=== PATIENT | female | born 1970 | race Caucasian/White ===

== ENCOUNTER 2018-10-30 18:52 | Inpatient (IN) | payer MEDICAID ==
[~2018-10-30] VITALS: Ht 170.2 cm; Wt 47.6 kg
[2018-10-30] MEDS ORDERED: ONDANSETRON HCL 4MG/2ML INJ IV STA (20:14)
[2018-10-30] MEDS ORDERED: SODIUM CHLORIDE 0.9% 1,000 ML IV ONE (20:14)
[2018-10-30] MEDS ORDERED: KETOROLAC 15MG/ML VIAL IV ONE ×2 (20:15→23:00)
[2018-10-30 22:03] LABS: BASOPHILS % 0.8 % (0.0-2.0); EOSINOPHILS % 1.8 % (0.0-5.0); HEMATOCRIT. 38.3 % (36.0-48.0); HEMOGLOBIN. 13.2 g/dL (12.0-16.0); LYMPHOCYTES % 14.2 % (20.0-50.0); MEAN CORPUSCULAR HEMOGLOBIN 31.9 pg (28.0-32.0); MEAN CORPUSCULAR VOLUME 92.2 fL (81.0-99.0); NEUTROPHILS % 79.2 % (40.0-76.0); PLATELET 255 x1000/uL (130-400); RED BLOOD CELL COUNT 4.15 mill/uL (4.2-5.4); RED CELL DISTRIBUTION WIDTH 14.8 % (11.6-14.6)
[2018-10-30 22:17] LABS: CLARITY URINE CLEAR (CLEAR); COLOR URINE YELLOW (YELLOW); KETONES URINE NEGATIVE (NEGATIVE); LEUKOCYTE ESTERASE URINE 2+ (NEGATIVE); NITRITE URINE NEGATIVE (NEGATIVE); OCCULT BLOOD URINE TRACE (NEGATIVE); PH URINE 6.5 (4.5-8.0); PROTEIN URINE NEGATIVE (NEGATIVE); SPECIFIC GRAVITY URINE 1.016 (1.005-1.030); UROBILINOGEN URINE 0.2 E.U./dL (0.2-1.0)
[2018-10-30] MEDS ORDERED: CEFTRIAXONE 1 G PREMIX 50 ML IV ONE (23:30)
[2018-10-30] MEDS ORDERED: HYDROCODONE/ACETAMINOPHEN 10/325MG TABLET PO ONE (23:30)
[2018-10-31 00:13] LABS: CHLORIDE 107 mEq/L (98-107)
[2018-10-31] MEDS ORDERED: HYDROCODONE/ACETAMINOPHEN 10/325MG TABLET PO ONE (00:30)
[2018-10-31 03:40] VITALS: BP 131/61
[2018-10-31 03:51] VITALS: BP 131/61
[2018-10-31] MEDS ORDERED: ONDANSETRON HCL 4MG/2ML INJ IV PRN (04:30)
[2018-10-31] MEDS ORDERED: KETOROLAC 30MG/ML VIAL IV PRN (04:30)
[2018-10-31] MEDS ORDERED: SODIUM CHLORIDE 0.9% 1,000 ML IV SCH (05:30)
[2018-10-31] MEDS ORDERED: TAMSULOSIN HCL 0.4MG SR CAPSULE PO SCH (09:00)
== END 2018-10-31 04:59 | disposition left against medical advice (07) | DRG 463 ==
LOC: ER 18:52 → 8WST 10-31 00:23 → EDBEDREQ 10-31 00:27 → EDBEDREQTM 10-31 00:27 → ENRESERV 10-31 02:11
PROVIDERS: ADMIT Internal Medicine; ATTEND Internal Medicine
DX: N13.6 Pyonephrosis (principal); E11.9 Type 2 diabetes mellitus without complications; F17.210 Nicotine dependence, cigarettes, uncomplicated; Z53.21 Procedure and treatment not carried out due to patient leaving prior to being seen by health care provider; Z85.3 Personal history of malignant neoplasm of breast; Z88.5 Allergy status to narcotic agent; Z88.8 Allergy status to other drugs, medicaments and biological substances
CPT/HCPCS: 36415; 71045; 74176; 87106; 93005; 96361; 96374; 96375; 99291; J0696; J1885; J2405; J7030

== ENCOUNTER 2022-04-06 10:11 | Emergency (ER) | payer MEDICAID ==
[~2022-04-06] VITALS: Ht 170.2 cm; Wt 59.0 kg
[2022-04-06 10:38] VITALS: BP 108/53
== END 2022-04-06 14:31 | disposition left against medical advice (07) ==
LOC: ER 10:11
DX: R10.31 Right lower quadrant pain (principal)
CPT/HCPCS: 99281